=== PATIENT | female | born 1950 | race Asian ===

== ENCOUNTER 2016-12-04 10:42 | Emergency (ER) | payer MEDICAID ==
[~2016-12-04] VITALS: Ht 154.9 cm; Wt 60.5 kg
[2016-12-04] MEDS ORDERED: OMEG300C3 PO (10:46)
[2016-12-04 10:51] LABS: GLUCOSE,POINT OF CARE 91 MG/DL (70-110)
[2016-12-04 16:00] VITALS: BP 189/121
[2016-12-04] MEDS ORDERED: METOPROLOL SUCCINATE 50 MG ER TABLET PO ONE (16:15)
[2016-12-04] MEDS ORDERED: LISINOPRIL 10 MG TABLET PO ONE (16:15)
== END 2016-12-04 16:37 | disposition home or self-care (01) ==
LOC: EMS 10:44
DX: R03.0 Elevated blood-pressure reading, without diagnosis of hypertension (principal); H11.31 Conjunctival hemorrhage, right eye; E11.9 Type 2 diabetes mellitus without complications; E78.00 Pure hypercholesterolemia, unspecified; I10 Essential (primary) hypertension
CPT/HCPCS: 82962; 99283